=== PATIENT | male | born 1980 | race African-American/Black ===

== ENCOUNTER → 2020-09-03 | Day surgery (SDC) | payer OTHER ==
[~2020-09-03] MED LIST: PROPRANOLOL HCL20 MG PO
[2020-09-03 08:09] LABS: HCT 47.7 % (42.0-52.0); MCH 29.5 pg (25.0-31.0); MCHC 33.5 g/dL (32.0-36.0); MCV 87.8 fL (78.0-100.0); MPV 10.8 fL (6.0-9.5); RBC 5.43 M/uL (4.70-6.00); RDW 12.2 % (11.5-14.0); WBC 7.5 K/uL (4.0-10.5)
[2020-09-03 08:37] LABS: ALBUMIN 3.3 g/dL (3.4-5.0); BILIRUBIN - TOTAL 0.4 mg/dL (0.2-1.0); BUN/CREAT RATIO (CALC) 11.4 RATIO; CREATININE 0.88 mg/dL (0.67-1.17); GLOBULIN (CALCULATION) 4.4 g/dL; POTASSIUM 3.9 mmol/L (3.5-5.1); TOTAL PROTEIN 7.7 g/dL (6.4-8.2)
== END | disposition home or self-care (01) ==
LOC: FAS 07:00
PROVIDERS: Surgery
DX: L72.3 Sebaceous cyst (principal); I10 Essential (primary) hypertension; Z87.891 Personal history of nicotine dependence; Z79.899 Other long term (current) drug therapy
CPT/HCPCS: 36415; 80053; 93005; J2405; J2704; J3010; J7120

== ENCOUNTER 2020-09-22 10:59 | Emergency (ER) | payer OTHER ==
[2020-09-22 12:17] LABS: EOSINOPHIL 3.5 % (0-5); HCT 50.9 % (42.0-52.0); HGB 17.2 g/dl (13.2-18.0); MCH 29.1 pg (25.0-31.0); MCHC 33.8 g/dL (32.0-36.0); MONOCYTE 9.3 % (0-12); MPV 10.5 fL (6.0-9.5); NEUTROPHIL 52.9 % (41-80); NRBC 0; PLT 324 K/uL (150-400); RBC 5.92 M/uL (4.70-6.00); RDW 11.9 % (11.5-14.0); WBC 7.1 K/uL (4.0-10.5)
[2020-09-22 12:37] LABS: ALBUMIN 3.9 g/dL (3.4-5.0); BILIRUBIN - TOTAL 0.5 mg/dL (0.2-1.0); BUN/CREAT RATIO (CALC) 11.3 RATIO; CREATININE 0.97 mg/dL (0.67-1.17); GLOBULIN (CALCULATION) 4.6 g/dL; IRON % SATURATION 20.3 %SAT (20-50); MAGNESIUM 2.3 mg/dL (1.8-2.4); POTASSIUM 3.9 mmol/L (3.5-5.1); TOTAL PROTEIN 8.5 g/dL (6.4-8.2)
[2020-09-22 12:56] LABS: BILIRUBIN NEGATIVE (NEGATIVE); BLOOD NEGATIVE Ery/uL (NEGATIVE); CLARITY CLEAR (CLEAR); COLOR YELLOW (YELLOW); GLUCOSE (U) NORMAL (NORMAL); LEUKOCYTES NEGATIVE Leu/uL (NEGATIVE); NITRITE NEGATIVE (NEGATIVE); PROTEIN NEGATIVE (NEGATIVE); SPECIFIC GRAVITY 1.025 (1.001-1.030); UROBILINOGEN 0.2 mg/dL (0.2-1.0); pH 5.5 (5.0-9.0)
== END 2020-09-22 13:41 | disposition home or self-care (01) ==
LOC: FER 10:59
PROVIDERS: Emergency Medicine
DX: R42 Dizziness and giddiness (principal); I10 Essential (primary) hypertension; Z79.899 Other long term (current) drug therapy
CPT/HCPCS: 36415; 70450; 80053; 81003; 83540; 83550; 83735; 84484; 85025; 93005